=== PATIENT | female | born 2000 | race African-American/Black ===

== ENCOUNTER 2022-09-11 08:57 | Emergency (ER) | payer BC, SELFPAY ==
[2022-09-11 09:05] VITALS: BP 141/90; PULSE 55; RESP 16; TEMP 36.4; O2SAT 100
--- NOTE | 2022-09-11 09:28 | ED.DENTAL ---
HPI - Dental/Oral General Chief complaint: Dental/Oral Stated complaint: Toothache Time Seen by Provider: 09/11/22 09:31 Source: patient Mode of arrival: ambulatory History of Present Illness HPI Narrative: 22-year-old female presented for complaint of right upper molar pain since yesterday. States the site has a cavity and is broken. Endorses pain is throbbing rates 8/10, with mild cheek swelling. She did take a tablet of Augmentin last night for the upper molar pain. She was prescribed the Augmentin for right lower dental pain on 08/07/22, but did not take the abx because the pain had improved. Also took 2 Tylenol for pain today. Denies n/v/d/f/c. She does not have a dentist. MD Complaint: tooth pain Related Data Allergies Allergy/AdvReac Type Severity Reaction Status Date / Time No Known Allergies Allergy Verified 09/11/22 09:31 Review of Systems Review of Systems: CONSTITUTIONAL: Denies body aches, fever, chills ENT: Denies rhinorrhea, congestion, sore throat, or otalgia. Reports dental pain CARDIOVASCULAR: Denies chest pain, palpitations RESPIRATORY: Denies cough or dyspnea. SKIN: Denies rash, itching, or wounds. MUSCULOSKELETAL: Denies myalgia. NEUROLOGIC: Denies headache, numbness, tingling, or weakness. [facility] Past Medical History Medical History (Updated 09/11/22 @ 09:59 by Reny Pillai, RASHAWN) No pertinent past medical history Comments At time of signature, I have reviewed and agree with nursing past medical, surgical, social and family history unless otherwise noted. Please see nursing chart for further information. There is no relevant family history pertinent to the presenting complaint Exam Narrative: GENERAL: Appears in pain; no acute distress. HEAD: Normocephalic, atraumatic. EYES: EOMI. No redness or drainage. Conjunctivae normal. ENT: Dental pain location of #1, broken tooth with mild gum swelling and tenderness, no drainage. Right lower dental pain at #30 with broken tooth. Mucous membranes pink and moist. TMs normal bilaterally. Throat normal. Uvula midline. NECK: Normal AROM. No lymphadenopathy. No induration below mandible, no neck pain. CHEST: No respiratory distress. SKIN: Warm, dry, Normal skin turgor. NEURO: No focal deficits. Alert and oriented x3. Course Course Emergency Course: Patient is aware of diagnosis, understands and agrees to treatment plan. Anticipatory guidance given. Patient agrees to follow-up as directed and is aware of reasons to seek care at the emergency department. Portions of this record may have been created with voice recognition software Level of Care: Express Care Visit Vital Signs Vital signs: Vital Signs Temperature 97.5 F L 09/11/22 09:05 Pulse Rate 55 L 09/11/22 09:05 Respiratory Rate 16 09/11/22 09:05 Blood Pressure 141/90 H 09/11/22 09:05 Pulse Oximetry 100 09/11/22 09:05 Oxygen Delivery Room Air 09/11/22 09:05 Temperature 97.5 F L 09/11/22 09:05 Pulse Rate 55 L 09/11/22 09:05 Respiratory Rate 16 09/11/22 09:05 Blood Pressure 141/90 H 09/11/22 09:05 Pulse Oximetry 100 09/11/22 09:05 Oxygen Delivery Room Air 09/11/22 09:05 MDM - Dental/Oral MDM Narrative Medical decision making narrative: Patients pain and complaint coupled with physical findings are consistent with dentalgia. There are no focal signs of space occupying lesions that are compromising to the airway; No uvular deviation or soft palate edema. Patient is non-toxic appearing. The floor of the mouth is soft with no signs of Romain's Angina; Patient is without trismus or drooling and able to swallow secretions. Patient is felt appropriate for discharge home with dental follow up. List provided. She will resume the previously prescribed Augmentin as she has a full course available. Also has Rx for viscous lidocaine. Discussed physical exam findings. Advised supportive measures and signs/symptoms to go to the ER. Different
== END 2022-09-11 09:45 | disposition home or self-care (01) ==
PROVIDERS: Emergency Provider Nurse Practitioner Family
DX: K08.89 Other specified disorders of teeth and supporting structures (principal)
CPT/HCPCS: 99213; G0463